=== PATIENT | female | born 1950 | race Two or more races ===

== ENCOUNTER 2024-09-22 08:10 | Day surgery (SDC) | payer MEDICARE, MEDICAID, SELFPAY ==
[2024-09-22] VITALS (11 sets, daily range): BP systolic 124–191; BP diastolic 74–99; PULSE 51–67; RESP 11–18; TEMP 36.2–37.1; O2SAT 93–98; BMI 35.1
[2024-09-22] MEDS: MIDAZOLAM INJ 1 MG/ML VIAL 2 ML (ASD USE ONLY) 2 MG IV (10:49)
[2024-09-22] MEDS: DiphenhydrAMINE INJ 50 MG/ML VIAL 25 MG IV (10:49)
[2024-09-22] MEDS: fentaNYL CIT INJ 50 mCg/ML AMP 2ML (ASD USE ONLY) IV (10:49)
--- NOTE | 2024-09-22 12:00 | SUR.PHASEII ---
1130 Pt more awake and alert. Via [place] speaker-pt denies N/V, does complain of being bloated. Pt repositioned with flatus heard. Pt states feels better. Emmett PO fluids.
--- NOTE | 2024-09-22 12:12 | SUR.PHASEII ---
1150 Pt assessment unchanged. No complaints. Amb with steady with use of cane-same as preop. Pt denies assistance with getting dressed. DC instructions given. Both state understanding. Pt and Alvin, requesting I also contact his sister, Suly, and give instructions. Call placed-left message. Pt meets dc criteria-to home. 1206 Pt's daughter, Suly, returned our call. Questions answered. Understanding stated.
== END 2024-09-22 11:50 | disposition home or self-care (01) ==
PROVIDERS: Referring Provider Specialist; Visit Provider Specialist
PROC: 0DBE8ZX Excision of Large Intestine, Via Natural or Artificial Opening Endoscopic, Diagnostic (ICD-10-PCS; CPT 45380; principal; 2024-09-22 13:45)
DX: K64.9 Unspecified hemorrhoids (principal); K57.30 Diverticulosis of large intestine without perforation or abscess without bleeding
CPT/HCPCS: 45378; J1200; J2250; J3010